=== PATIENT | male | born 1930 | race Caucasian/White ===

== ENCOUNTER 2016-04-18 11:29 | Outpatient (CLI) | payer MEDICARE, BC ==
[2016-04-18 12:17] LABS: ALT (SGPT) 9 U/L (0-55); AST (SGOT) 16 U/L (5-34); Albumin 3.9 g/dL (3.4-4.8); Alkaline Phosphatase 63 U/L (40-150); Anion Gap 14 mmol/L (10-20); BUN (Urea Nitrogen) 19 mg/dL (8.4-25.7); Bilirubin, Direct 0.2 mg/dL (0.1-0.3); Bilirubin, Total 0.7 mg/dL (0.2-1.2); Calc. Creatinine Clearance 0 mL/min (70-130); Calcium 9.1 mg/dL (7.8-10.44); Carbon Dioxide 26 mmol/L (23-31); Cardiac Risk 3.9 (Less than 4.5); Chloride 106 mmol/L (98-107); Cholesterol 193 mg/dL (< 200 Desired); Estimated GFR-MDRD 67; Glucose 109 mg/dL (83-110); HDL Cholesterol 49 mg/dL (>60 Neg Risk); LDL Cholesterol, Calculated 120 mg/dL; Potassium 3.8 mmol/L (3.5-5.1); Protein, Total 6.6 g/dL (5.8-8.1); Sodium 142 mmol/L (136-145); Triglycerides 121 mg/dL (Less than 150)
[2016-04-18 13:36] LABS: Bilirubin Negative (Negative); Blood, Urine Large (Negative); Clarity Cloudy (Clear); Glucose, Urine (Dipstick) Negative (Negative); Leukocyte Large (Negative); Nitrite Negative (Negative); Protein, Urine (Dipstick) 100 mg/dL (Neg-Trace); RBC/HPF GREATER THAN 50-TNTC HPF (0-3); Specific Gravity, Urine 1.025 (1.005-1.030); Urobilinogen 0.2 mg/dL (0.2-1.0)
[2016-04-18 13:37] LABS: Bacteria/HPF Rare-Few HPF (None Seen)
== END 2016-04-18 11:30 | disposition home or self-care (01) ==
LOC: MADLABBHPM 11:29
PROVIDERS: ATTEND Family Medicine
DX: N18.2 Chronic kidney disease, stage 2 (mild) (principal); E78.5 Hyperlipidemia, unspecified; R30.0 Dysuria
CPT/HCPCS: 36415; 80048; 80061; 80076; 81001; 87077; 87086; 87186

== ENCOUNTER 2016-07-27 13:05 | Outpatient (CLI) | payer MEDICARE, BC ==
[2016-07-27 13:56] LABS: ALT (SGPT) 15 U/L (8-55); AST (SGOT) 20 U/L (5-34); Albumin 3.8 g/dL (3.4-4.8); Alkaline Phosphatase 71 U/L (40-150); Anion Gap 12 mmol/L (10-20); BUN (Urea Nitrogen) 16 mg/dL (8.4-25.7); Bilirubin, Direct 0.2 mg/dL (0.1-0.3); Bilirubin, Total 0.4 mg/dL (0.2-1.2); Calc. Creatinine Clearance 0 mL/min (70-130); Calcium 8.8 mg/dL (7.8-10.44); Carbon Dioxide 25 mmol/L (23-31); Cardiac Risk 3.4 (Less than 4.5); Chloride 107 mmol/L (98-107); Cholesterol 201 mg/dl (< 200 Desired); Estimated GFR-MDRD 63; Glucose 104 mg/dL (83-110); HDL Cholesterol 59 mg/dL (>60 Neg Risk); LDL Cholesterol, Calculated 118 mg/dL; Protein, Total 6.6 g/dL (5.8-8.1); Sodium 140 mmol/L (136-145); Triglycerides 120 mg/dL (Less than 150)
== END 2016-07-27 13:06 | disposition home or self-care (01) ==
LOC: MADLABBHPM 13:05
PROVIDERS: ATTEND Family Medicine
DX: E78.5 Hyperlipidemia, unspecified (principal)
CPT/HCPCS: 36415; 80048; 80061; 80076

== ENCOUNTER 2017-08-17 10:58 | Emergency (ER) | payer MEDICARE, BC | END 2017-08-17 11:48 | disposition home or self-care (01) | LOC: MADERS 10:58 | DX: K59.00 Constipation, unspecified (principal); R03.0 Elevated blood-pressure reading, without diagnosis of hypertension; Z79.891 Long term (current) use of opiate analgesic | CPT/HCPCS: 99283 ==

== ENCOUNTER 2017-11-29 05:53 | Emergency (ER) | payer MEDICARE, BC ==
[2017-11-29 06:32] LABS: Bilirubin Negative (Negative); Blood, Urine Large (Negative); Glucose, Urine (Dipstick) Negative (Negative); Leukocyte Large (Negative); Nitrite Negative (Negative); Protein, Urine (Dipstick) 100 mg/dL (Neg-Trace); Urobilinogen 0.2 mg/dL (0.2-1.0)
[2017-11-29 06:34] LABS: Bacteria/HPF 3+ HPF (None Seen); Clarity Cloudy (Clear); Squamous Epithelial 0-3 HPF (0-3)
[2017-11-29 07:00] LABS: Eosinophils 2 % (0-10); Hemoglobin 12.1 g/dL (14.0-18.0); Lymphocytes 12 % (21-51); MDiff Complete? YES; Mean Corpuscular HGB CONC 32.5 g/dL (32.0-36.0); Mean Corpuscular Hemoglobin 29.6 pg (27.0-31.0); Mean Corpuscular Volume 91.2 fL (78.0-98.0); Mean Platelet Volume 7.3 fL (7.4-10.4); Monocytes 8 % (0-10); Neutrophil 78 % (42-75); Platelet Count 179 thou/uL (130-400); RBC Distribution Width 11.9 % (11.5-14.5); Red Blood Cell (RBC) Count 4.08 mill/uL (4.70-6.10); White Blood Cell (WBC) Count 9.5 thou/uL (4.8-10.8)
[2017-11-29] MEDS ORDERED: Cephalexin 250 MG CAP ONE (07:01)
[2017-11-29 07:04] LABS: Anion Gap 13 mmol/L (10-20); BUN (Urea Nitrogen) 19 mg/dL (8.4-25.7); Calc. Creatinine Clearance 0 mL/min (70-130); Calcium 8.8 mg/dL (7.8-10.44); Carbon Dioxide 25 mmol/L (23-31); Chloride 106 mmol/L (98-107); Estimated GFR-MDRD 47; Glucose 129 mg/dL (83-110); Potassium 4.1 mmol/L (3.5-5.1); Sodium 140 mmol/L (136-145)
== END 2017-11-29 07:15 | disposition home or self-care (01) ==
LOC: MADERS 05:53
DX: N39.0 Urinary tract infection, site not specified (principal); Z79.899 Other long term (current) drug therapy; Z79.891 Long term (current) use of opiate analgesic
CPT/HCPCS: 36415; 80048; 81003; 81015; 85025; 93005

== ENCOUNTER 2018-07-05 18:05 | Emergency (ER) | payer MEDICARE, BC ==
[2018-07-05 18:30] LABS: Bilirubin Moderate (Negative); Blood, Urine Large (Negative); Glucose, Urine (Dipstick) Negative (Negative); Leukocyte Small (Negative); Nitrite Negative (Negative); Protein, Urine (Dipstick) > or equal to 300 mg/dL (Neg-Trace); Specific Gravity, Urine 1.015 (1.005-1.030); Urobilinogen 0.2 mg/dL (0.2-1.0); pH, Urine 5.5 (5.0-9.0)
[2018-07-05 18:31] LABS: Clarity Cloudy (Clear)
[2018-07-05 18:38] LABS: Bacteria/HPF Rare-Few HPF (None Seen); RBC/HPF GREATER THAN 50-TNTC HPF (0-3); Squamous Epithelial 0-3 HPF (0-3); WBC/HPF 21-50 HPF (0-3)
[2018-07-05 19:09] LABS: Anion Gap 13 mmol/L (10-20); BUN (Urea Nitrogen) 19 mg/dL (8.4-25.7); Calc. Creatinine Clearance 0 mL/min (70-130); Calcium 9.6 mg/dL (7.8-10.44); Carbon Dioxide 28 mmol/L (23-31); Chloride 105 mmol/L (98-107); Estimated GFR-MDRD 47; Glucose 167 mg/dL (83-110); Potassium 4.6 mmol/L (3.5-5.1); Sodium 141 mmol/L (136-145)
[2018-07-05 19:10] LABS: Eosinophils 1 % (0-10); Lymphocytes 5 % (21-51); MDiff Complete? YES; Mean Corpuscular HGB CONC 32.4 g/dL (32.0-36.0); Mean Corpuscular Volume 92.6 fL (78.0-98.0); Mean Platelet Volume 6.1 fL (7.4-10.4); Metamyelocyte 1 % (0-0); Monocytes 2 % (0-10); Neutrophil 75 % (42-75); Platelet Count 233 thou/uL (130-400); Platelet Morphology Comment Appears Adequate; RBC Distribution Width 12.8 % (11.5-14.5); Reactive Lymphocytes 16 % (0-10); Red Blood Cell (RBC) Count 4.34 mill/uL (4.70-6.10); White Blood Cell (WBC) Count 6.9 thou/uL (4.8-10.8)
--- NOTE | 2018-07-05 19:29 | CT ---
CT OF THE ABDOMEN AND PELVIS WITHOUT IV CONTRAST: 07/05/18 INDICATION: History of hematuria. COMPARISON: Prior CT of the abdomen and pelvis with contrast dated 11/19/11. 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 No focal hepatic lesion is evident. The gallbladder is surgically absent. Unopacified pancreas, adrenal gland and spleen appear within normal limits. There has been interval enlargement of the right sided renal cyst now measuring 6.8 cm where previous ly it measured 3.7 cm. The left renal cyst appears to have partially decompressed from the prior exam , now measuring 2.1 cm where previously it measured 3.2 cm. There has been interval development of mo derate bilateral hydronephrosis. There is a 2.5 mm calculus in the superior pole left kidney. There i s a 1 to 2 mm calculus in superior pole right kidney. There is bilateral moderate hydroureter. There is moderate distention of the bladder. There is wall thickening involving the bladder. Prostate remains enlarged measuring 6.7 cm. There is a moderate amount of retained stool within the colon. There is a normal appendix in the righ t lower quadrant. No drainable fluid collection is evident. The rectum and perirectal soft tissues are unremarkable. There are moderate calcifications involving the abdominal and pelvic vasculature. There is a 9 mm enlarged lymph node adjacent to the right external iliac vasculature. No pathological ly enlarged lymph nodes grossly evident. There is scattered degenerative and osteoarthritic change. S mall bone island within the right pubic root is stable appearing. There is diffuse osteopenia. IMPRESSION: 1. 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 Recommend correlation. Cystoscopy is recommended for ad ditional evaluation. 2. Moderate bilateral hydronephrosis and hydroureter likely related to the bladder outlet obstru ction. 3. Bilateral nephrolithiasis. 4. Increasing size of the right sided renal cyst and decrease in size of the left renal cyst. 5. Moderate amount of retained stool within the colon. 6. Nonspecific 9 mm lymph node adjacent to the right external iliac vasculature. 7. Other chronic findings as above. POS: RAVINDER
== END 2018-07-05 20:09 | disposition home or self-care (01) ==
LOC: MADERS 18:05
DX: N30.01 Acute cystitis with hematuria (principal); Z79.899 Other long term (current) drug therapy; Z79.891 Long term (current) use of opiate analgesic
CPT/HCPCS: 36415; 74176; 80048; 81003; 81015; 85025; 87086